=== PATIENT | male | born 1990 | race Caucasian/White ===

== ENCOUNTER 2024-07-21 17:53 | Inpatient (IN) | payer OTHER, SELFPAY ==
[2024-07-21 12:30] VITALS: BP 152/100
[2024-07-21 13:11] LABS: % Basophils 0.3 % (0-2); % Eosinophils 0.1 % (0-6); % Immature Granulocytes 0.4 % (0-0.5); % Monocytes 8.9 % (1.7-9.3); % Neutrophils 85.3 % (42.2-75.2); Absolute Basophils 0.1 10^3/uL (0-0.2); Absolute Immature Granulocytes 0.1 10^3/uL (0-0.05); Absolute Lymphocytes 0.8 10^3/uL (1.2-3.4); Absolute Monocytes 1.4 10^3/uL (0.1-0.6); Absolute Neutrophils 13.6 10^3/uL (1.4-6.5); Hematocrit 34.2 % (39.0-52.0); Hemoglobin 11.4 g/dL (13.0-18.0); Mean Corp Hgb Conc. 33.3 g/dL (33.0-37.0); Mean Corpuscular Hgb 30.9 pg (27.0-31.0); Mean Corpuscular Volume 92.7 fL (80.0-94.0); Mean Platelet Volume 9.3 fL (7.4-10.4); Nucleated Red Blood Cells % 0 % (-); Platelet Count 266 10^3/uL (130-400); Red Blood Cell Count 3.69 10^6/uL (4.70-6.10); Red Cell Dist. Width 12.1 % (11.5-14.5); White Blood Cell Count 15.9 10^3/uL (4.8-10.8)
[2024-07-21 13:21] LABS: ALT (SGPT) 52 U/L (0-50); AST (SGOT) 52 U/L (17-59); Alkaline Phosphatase 74 U/L (38-126); Blood Urea Nitrogen 31 mg/dl (9-20); Calcium 9.2 mg/dl (8.4-10.2); Carbon Dioxide 27 mmol/L (22-30); Chloride 102 mmol/L (98-107); Glucose 121 mg/dl (70-99); Potassium 4.4 mmol/L (3.5-5.1); Sodium 137 mmol/L (135-145); Total Bilirubin 0.5 mg/dl (0.2-1.3); Total Protein 6.6 g/dl (6.3-8.2); eGFR > 60.00
[2024-07-21 15:03] VITALS: BP 129/78
--- NOTE | 2024-07-21 15:46 | ED.GENMED ---
History of Present Illness
General
Chief Complaint: Skin Problem
Time Seen by Provider: 07/21/24 15:12
History of Present Illness
History of Present Illness:
33-year-old male with history of hypertension presents the emergency department for evaluation of left lower extremity redness swelling and pain for the past 4 to 5 days. Notes that he initially had an abrasion on his left ankle from his work boots
presumably, has had progressive worsening swelling over that time. Reports headache and general fatigue today as well. No objective fevers. No known history of MRSA. Denies history of IV drug abuse.
Past History
Past History
ED Past Medical History: None
ED Past Surgical History: None
Social History
Tobacco: Non-smoker
Alcohol: None
Review of Systems
Review of Systems
Allergies reviewed?: Yes
All Other Systems: ROS reviewed and negative except as documented in HPI and ROS
Phy Exam
Physical Exam
Physical Exam:
GEN: Well appearing, NAD, WDWN
HEENT: Oral mucosa moist, no scleral icterus
Cardiac: Regular rate
Lung: No respiratory distress, no tachypnea
MSK: Marked edema and erythema circumferentially in the entire left lower extremity extending to the mid thigh, there is a small abrasion to the left medial foot
Skin: Good color, no pallor or jaundice, no rashes
Neuro: AO x3, moves all extremities freely
Psych: Calm, cooperative
Sepsis
Sepsis Screening
Sepsis Assessment: Sepsis
Sepsis Screen
Sepsis Screen: Sepsis
Date: 07/21/24
Time: 18:55
Course
Orders/Labs/Results
Orders:
Orders
07/21/24 12:48
CMP [Comprehensive Metabolic Panel] Urgent
Complete Blood Count/With Diff Urgent
Blood Culture Urgent
BLAYNE Source: Blood/Venous
Specimen Description:
07/21/24 15:32
CeFAZolin 2 GRAM [Ancef] 2 grams in 10 ml IV NOW
07/21/24 16:39
Lactic Acid Q4H
Comment: CANCEL 2nd LACTIC ACID IF 1st LACTIC ACID IS LESS THAN 2
Blood Culture Urgent
BLAYNE Source: Blood/Venous
Specimen Description:
07/21/24 17:29
Venous Doppler Lwr Ext Left [US Periph Venous LOWER Ext LT] Urgent
Comment:
Reason For Exam: lef tleg edema
07/21/24 17:30
Admit/Transfer Patient As Directed
Co-Sign Provider:
Level of Care: Inpatient admission
Assign to:: Medical/Surgical
Physician / Group: lacie olmstead
Diagnosis: LLE cellulitis, left heel wound,left knee effusion
Reason for Hospitalization: LLE cellulitis, left heel wound,left knee effusion
Expected length of stay greater than two midnights?: Yes
ELOS- Estimated Length of Stay in days: 4
I certify the patient meets the requirements for IP care: Yes
07/21/24 17:35
Code Status As Directed
Resuscitation Status: Full Code
07/21/24 17:36
PRN Pain Medication Management As Directed
May give lesser potent ordered pain med per pt: Yes
preference::
Protocol:: Medication orders for pain may be administered in a
manner that supports deferring to patient preference
when the pt is:
- Requesting an ordered lesser potent pain medication.
Least to most potent pain medications are defined
as: acetaminophen < NSAID < tramadol < opioids
(morphine, oxycodone, hydromorphone).
- Requesting a lesser dose of the same medication IF
ORDERED.
- Requesting a less intrusive route of administration
if both routes are prescribed by the provider (PO <
IV).
07/21/24 18:16
MRSA Screen Routine
BLAYNE Source: Nose
Specimen Description:
Abnormal Lab Results
07/21/24
12:48
WBC 15.9 H 10^3/uL
(4.8-10.8)
RBC 3.69 L 10^6/uL
(4.70-6.10)
Hgb 11.4 L g/dL
(13.0-18.0)
Hct 34.2 L %
(39.0-52.0)
Abs Immat Gran (auto) 0.1 H 10^3/uL
(0-0.05)
Absolute Neuts (auto) 13.6 H 10^3/uL
(1.4-6.5)
Absolute Lymphs (auto) 0.8 L 10^3/uL
(1.2-3.4)
Absolute Monos (auto) 1.4 H 10^3/uL
(0.1-0.6)
Neutrophils % 85.3 H %
(42.2-75.2)
Lymphocytes % 5.0 L %
(20.5-51.1)
BUN 31 H mg/dl
(9-20)
Glucose 121 H mg/dl
(70-99)
ALT 52 H U/L
(0-50)
07/21/24 12:48
07/21/24 12:48
Vital Signs
Initial and Last Documented VS:
Initial Vital Signs
Temp Pulse Resp BP Pulse Ox
98.6 F 114 20 152/100 98
07/21/24 12:30 07/21/24 12:30 07/21/24 12:30 07/21/24 12:30 07/21/24 12:30
Last Documented Vital Signs
Temp Pulse Resp BP Pulse Ox
98.4 F 91 18 162/90 100
07/21/24 16:20 07/21/24 16:20 07/21/24 16:20 07/21/24 16:20 07/21/24 16:20
MDM/Problems Addressed
MDM/Problems Addressed:
Massive degree of edema and erythema concerning for progressive cellulitis, will admit to the hospitalist service for IV antibiotics
*Critical Care Note
Total Time (30-74mins, 75-104mins- exclusive of procedures): Not Applicable
ED Attending Note
-
Portions of this chart may have been created with voice recognition software.� Occasional wrong word or��sound alike� substitutions may have occurred due to the inherent limitations of voice recognition software.
Discharge Plan
Departure
Patient Disposition: Admit
Date of Disposition: 07/21/24
Time of Disposition: 15:46
Admit to: Med/Surg
Presentation/result/management discussed w/ accepting MD/DO: Hospitalist
Discharge Problem:
Cellulitis of left lower extremity
Interventions
Interventions:
*Risk Screen - Suicide Last Done: 07/21/24 12:30
*Neglect/Abuse Screening Last Done: 07/21/24 12:30
ED- Fall Risk Assessment Last Done: 07/21/24 17:06
*ED COVID-19 Vaccine History Last Done: 07/21/24 12:30
ED-Skin Assessment Last Done: 07/21/24 17:06
[2024-07-21 16:20] VITALS: BP 162/90
[2024-07-21 16:26] VITALS: BMI 28.0
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
[2024-07-21] MEDS: ANCEF 10 IV (16:40)
[2024-07-21 17:06] LABS: Lactic Acid 0.7 mmol/L (0.7-2.0)
--- NOTE | 2024-07-21 17:26 | W.PN.UPDATE ---
Update Note
Progress Note Update
This is an addendum to the H&P written by Zayra Sousa on 07/21/2024. Patient seen and examined independently with MANAGER CODE.
33-year-old male past medical history of PTSD, anxiety/depression, prior methamphetamine use, insomnia, chronic generalized pain, former alcohol user presenting with left leg redness, pain and swelling originating from the site of scab at his left
ankle that he picked.
Check venous ultrasound. Cefazolin. Check MRSA swab.
Patient taking excessive amounts of ibuprofen and counseled on reduction.
[2024-07-21 19:41] VITALS: BP 159/92; BMI 27.8
[2024-07-21] MEDS: REMERON 45 MG PO (20:36)
[2024-07-21] MEDS: TYLENOL PO (20:36)
[2024-07-21] MEDS: WELLBUTRIN REGULAR RELEASE 150 MG PO (20:37)
[2024-07-21] MEDS: MOTRIN PO (20:37)
[2024-07-21 23:35] VITALS: BP 140/79
[2024-07-22] MEDS: TYLENOL 650 MG PO ×5 (00:19→23:33)
[2024-07-22] MEDS: ANCEF 10 IV ×4 (00:20→23:33)
[2024-07-22] MEDS: MOTRIN PO ×2 (00:28→03:17)
[2024-07-22] MEDS: TYLENOL PO (00:28)
[2024-07-22 07:24] LABS: % Basophils 0.4 % (0-2); % Eosinophils 1.5 % (0-6); % Immature Granulocytes 0.3 % (0-0.5); % Lymphocytes 10.8 % (20.5-51.1); % Monocytes 8.2 % (1.7-9.3); % Neutrophils 78.8 % (42.2-75.2); Absolute Basophils 0.1 10^3/uL (0-0.2); Absolute Eosinophils 0.2 10^3/uL (0-0.7); Absolute Lymphocytes 1.2 10^3/uL (1.2-3.4); Absolute Monocytes 0.9 10^3/uL (0.1-0.6); Absolute Neutrophils 9.1 10^3/uL (1.4-6.5); Hematocrit 35.5 % (39.0-52.0); Hemoglobin 12.3 g/dL (13.0-18.0); Mean Corp Hgb Conc. 34.6 g/dL (33.0-37.0); Mean Corpuscular Hgb 31.8 pg (27.0-31.0); Mean Corpuscular Volume 91.7 fL (80.0-94.0); Mean Platelet Volume 9.4 fL (7.4-10.4); Nucleated Red Blood Cells % 0 % (-); Platelet Count 307 10^3/uL (130-400); Red Blood Cell Count 3.87 10^6/uL (4.70-6.10); Red Cell Dist. Width 12.2 % (11.5-14.5); White Blood Cell Count 11.5 10^3/uL (4.8-10.8)
[2024-07-22 07:45] VITALS: BP 121/81
[2024-07-22] MEDS: WELLBUTRIN REGULAR RELEASE 150 MG PO ×2 (08:58→21:55)
[2024-07-22] MEDS: ZOLOFT 250 MG PO (08:58)
[2024-07-22] MEDS: PROTONIX 40 MG PO (09:01)
[2024-07-22 09:52] LABS: ALT (SGPT) 46 U/L (0-50); AST (SGOT) 41 U/L (17-59); Albumin 4.4 g/dl (3.5-5.0); Alkaline Phosphatase 72 U/L (38-126); Blood Urea Nitrogen 26 mg/dl (9-20); Calcium 9.7 mg/dl (8.4-10.2); Carbon Dioxide 22 mmol/L (22-30); Chloride 104 mmol/L (98-107); Estimated Creatinine Clearance > 125 ml/min; Glucose 145 mg/dl (70-99); Potassium 4.2 mmol/L (3.5-5.1); Sodium 139 mmol/L (135-145); Total Bilirubin 0.8 mg/dl (0.2-1.3); Total Protein 6.9 g/dl (6.3-8.2); eGFR > 60.00
[2024-07-22] MEDS: MOTRIN 600 MG PO ×3 (09:58→22:07)
--- NOTE | 2024-07-22 11:48 | W.PN.HOSP.TC ---
Addendum entered and electronically signed by Jewel Mcclain MD 07/23/24 11:13:
sepsis poa
Original Note:
Today's Communication/Plan
-
IV cefazolin
cont home meds
Assessment / Plan
Assessment / Plan
General: Pain; No Fever or Chills
HEENT: NormoCephalic, Anicteric, Moist mucous membranes, , [place] Conjunctivae and No Ptosis
Respiratory: Clear; No Wheezes, Rales or Rhonchi
Cardiac: S1/S2 and Regular Rhythm
Breast: Deferred by me
GI: Soft, Non Tender, Non Distended, Normal Bowel Sounds and No Hepatosplenomegaly
Rectal: Deferred by Provider
Genito-urinary: Deferred by me
Musculoskeletal: LLE erythema from foot to medial leg. Erythema at thigh region resolved based on marker from yesterday
Neuro: AO x 3, No Motor Deficits, Nonfocal/grossly intact, Cranial Nerves Intact and No Sensory Deficits; No Slurred Speech, Facial Droop, Tremors or Sedated
Psych: Calm
#Left lower extremity cellulitis/chronic left heel open callus likely source
#Left knee effusion-denies fall or injury
-Ultrasound left lower extremity-neg
-Check MRSA nasal screen
-Tylenol scheduled alternate with Motrin
-Continue Motrin 600 mg 4 times daily alternating with Tylenol due to history of addiction
-IV cefazolin
#PTSD
#Anxiety/depression
-Continue Zoloft to 50 mg daily
-Continue Wellbutrin 150 mg twice daily
#Insomnia
Continue Remeron 45 mg at bedtime
#Former methamphetamine use quit 8 years ago
-Snorted for 3 months then wrapped in toilet paper and swallowed
#Chronic generalized pain after stopping methamphetamine
-Patient taking 8000 mg of ibuprofen daily for the past 8 years
-Advised patient this is overdose dosing maximum amount is 4000 mg/day he states he will reduce
-Recommended patient find new PCP for medication such as Cymbalta to help with pain given past history of addiction
#Former alcoholic stopped age 21
Used to drink one half bottle of whiskey +15 beer daily
#Chronic bilateral ear/sinus pressure
-Recommended follow-up with ENT instead of using Debrox every single day twice daily
DVT prophylaxis
Subcu Lovenox
Full code
Anticipated Discharge: Within 24 hours
Subjective/Interval History
-
Date of Service: July 22, 2024
states improvement in erythema
Denies knee pain
Objective Data
-
Labs:
Laboratory Results
07/22/24
07:08
WBC 11.5 H
Hgb 12.3 L
Hct 35.5 L
Plt Count 307
Sodium 139
Potassium 4.2
Chloride 104
Carbon Dioxide 22
BUN 26 H
Creatinine 0.7
Glucose 145 H
Calcium 9.7
Total Bilirubin 0.8
AST 41
ALT 46
Alkaline Phosphatase 72
Vital Signs:
Vital Signs
Temp Pulse Resp BP Pulse Ox
98.8 F 89 18 121/81 99
07/22/24 07:45 07/22/24 07:45 07/22/24 07:45 07/22/24 07:45 07/22/24 08:45
I&O
07/21/24 07/22/24 07/23/24
06:59 06:59 06:59
Intake Total 900 / 900
Balance 900 / 900
Data Reviewed
-
Total Time Spent with Patient (in minutes): 55
[2024-07-22 15:48] VITALS: BP 146/84
[2024-07-22] MEDS: REMERON 45 MG PO (21:55)
[2024-07-22] MEDS: FLUSH (NSS) 2 FLUSH IV (23:34)
[2024-07-22 23:35] VITALS: BP 132/74
[2024-07-23] MEDS: MOTRIN PO (02:54)
[2024-07-23] MEDS: TYLENOL 650 MG PO ×2 (05:40→11:00)
[2024-07-23] MEDS: WELLBUTRIN REGULAR RELEASE 150 MG PO (06:14)
[2024-07-23] MEDS: ZOLOFT 250 MG PO (06:14)
[2024-07-23 06:31] LABS: % Basophils 0.6 % (0-2); % Eosinophils 2.4 % (0-6); % Immature Granulocytes 0.3 % (0-0.5); % Lymphocytes 18.2 % (20.5-51.1); % Neutrophils 68.5 % (42.2-75.2); Absolute Basophils 0.1 10^3/uL (0-0.2); Absolute Eosinophils 0.2 10^3/uL (0-0.7); Absolute Lymphocytes 1.6 10^3/uL (1.2-3.4); Absolute Monocytes 0.9 10^3/uL (0.1-0.6); Absolute Neutrophils 6.1 10^3/uL (1.4-6.5); Hematocrit 35.1 % (39.0-52.0); Mean Corp Hgb Conc. 34.2 g/dL (33.0-37.0); Mean Corpuscular Hgb 31.3 pg (27.0-31.0); Mean Corpuscular Volume 91.6 fL (80.0-94.0); Mean Platelet Volume 9.2 fL (7.4-10.4); Nucleated Red Blood Cells % 0 % (-); Platelet Count 326 10^3/uL (130-400); Red Blood Cell Count 3.83 10^6/uL (4.70-6.10); Red Cell Dist. Width 11.9 % (11.5-14.5); White Blood Cell Count 8.9 10^3/uL (4.8-10.8)
[2024-07-23 07:00] LABS: Blood Urea Nitrogen 25 mg/dl (9-20); Calcium 9.4 mg/dl (8.4-10.2); Carbon Dioxide 24 mmol/L (22-30); Chloride 106 mmol/L (98-107); Estimated Creatinine Clearance > 125 ml/min; Glucose 97 mg/dl (70-99); Potassium 4.5 mmol/L (3.5-5.1); Sodium 137 mmol/L (135-145); eGFR > 60.00
[2024-07-23 07:46] VITALS: BP 136/94
[2024-07-23] MEDS: PROTONIX 40 MG PO (08:35)
[2024-07-23] MEDS: ANCEF 10 IV (08:35)
[2024-07-23] MEDS: MOTRIN 600 MG PO (09:43)
--- NOTE | 2024-07-23 09:57 | PN.CDI ---
CDI
- -
CDI:
Physician Documentation Request
Admit Date: 07/21/24 17:53
Dear Doctor Johny,
Patient admitted for cellulitis.
07/22 Hospitalist PN: 'Left lower extremity cellulitis/chronic left heel open callus likely source'
Laboratory Tests
07/21/24
12:48
WBC 15.9 H
07/21/24
12:30 07/21/24
16:20 07/21/24
19:41
Pulse 114 91 95
Please clarify which of the following most accurately describes the status of the patient's infection:
Sepsis, POA
- Systemic manifestations of infection, with 2 or more SIRS criteria which include:
- Fever >100.4 degrees F or hypothermia < 96.8 degrees F
- Leukocytosis - WBC > 12,000 or leukopenia - WBC < 4,000 or > 10% bands
- Tachycardia > 90 beats per minute
- Tachypnea - RR > 20 breaths per minute or PaCO2 , 32mmHg
Source: Merck Manual 2012
Localized Infection Only, Without Systemic Illness
- indicate the site/source, such as UTI, pneumonia etc.
Other
Use of terms such as suspected, likely, concern for, or probable (associated with a specific diagnosis that is being evaluated, monitored, or treated as if it exists) are acceptable and can be coded in the inpatient setting, when documented at the
time of discharge.
Thank you,
Daniella Campos RN, BSN
CDI Specialist
Available via [employer] text
Please use your independent medical judgment in providing your response.
--- NOTE | 2024-07-23 11:07 | W.PN.HOSP.TC ---
Today's Communication/Plan
-
po abx
counseled on NSAIDs reduction
Assessment / Plan
Assessment / Plan
General: Pain; No Fever or Chills
HEENT: NormoCephalic, Anicteric, Moist mucous membranes, , [place] Conjunctivae and No Ptosis
Respiratory: Clear; No Wheezes, Rales or Rhonchi
Cardiac: S1/S2 and Regular Rhythm
Breast: Deferred by me
GI: Soft, Non Tender, Non Distended, Normal Bowel Sounds and No Hepatosplenomegaly
Rectal: Deferred by Provider
Genito-urinary: Deferred by me
Musculoskeletal: LLE erythema from foot to medial leg. Erythema at thigh region resolved based on marker significant improvement compared to yesterday. No left knee edema or swelling.
Neuro: AO x 3, No Motor Deficits, Nonfocal/grossly intact, Cranial Nerves Intact and No Sensory Deficits; No Slurred Speech, Facial Droop, Tremors or Sedated
Psych: Calm
#Left lower extremity cellulitis/chronic left heel open callus likely source
#Left knee effusion-denies fall or injury
-Ultrasound left lower extremity-neg
-Check MRSA nasal screen negative
-IV cefazolin transition to p.o. antibiotics on discharge. Plan for 7-day course.
#PTSD
#Anxiety/depression
-Continue Zoloft to 50 mg daily
-Continue Wellbutrin 150 mg twice daily
#Insomnia
Continue Remeron 45 mg at bedtime
#Chronic generalized pain after stopping methamphetamine
-Patient taking 8000 mg of ibuprofen daily for the past 8 years
-Advised patient this is overdose dosing maximum amount is 4000 mg/day he states he will reduce
-Recommended patient find new PCP for medication such as Cymbalta to help with pain given past history of addiction
#Former alcoholic stopped age 21
Used to drink one half bottle of whiskey +15 beer daily
#Chronic bilateral ear/sinus pressure
-Recommended follow-up with ENT instead of using Debrox every single day twice daily
DVT prophylaxis
Subcu Lovenox
Full code
More than 30 minutes spent in discharge including
Final examination of the patient
Summarizing hospital stay
Instructions for continuing care to all relevant caregivers
Preparation of discharge records, prescriptions, and referral forms
Total time spent (in minutes): 52
Anticipated Discharge: Today
Subjective/Interval History
-
Date of Service: July 23, 2024
States of significant improvement erythema
Denies any left knee pain
States able to ambulate without any difficulty
Objective Data
-
Labs:
Laboratory Results
07/23/24
06:09
WBC 8.9
Hgb 12.0 L
Hct 35.1 L
Plt Count 326
Sodium 137
Potassium 4.5
Chloride 106
Carbon Dioxide 24
BUN 25 H
Creatinine 0.7
Glucose 97
Calcium 9.4
Vital Signs:
Vital Signs
Temp Pulse Resp BP Pulse Ox
98.1 F 91 16 136/94 97
07/23/24 07:46 07/23/24 07:46 07/23/24 07:46 07/23/24 07:46 07/23/24 07:46
I&O
07/22/24 07/23/24 07/24/24
06:59 06:59 06:59
Intake Total 1859
Balance 1859
--- NOTE | 2024-07-23 11:13 | W.DCSUMMARY ---
Discharge Summary
Discharge Data
Date of Admission: 07/21/24
Date of Discharge: 07/23/24
-
Pending Results: No
Hospital Course
33-year-old male past medical history of PTSD, insomnia, generalized pain, chronic bilateral ear/sinus pressure was presented with left lower extremity erythema. Patient stated of scab the left ankle subsequently afterwards he noticed significant
erythema which was uptrending. Patient stated of severe swelling and left leg pain. Patient was admitted to hospital. My assessment was negative. Blood cultures were drawn and found to be negative. Patient was started on IV cefazolin. Patient
with significant improvement of erythema throughout hospitalization. Patient was taking increasing amount of ibuprofen was recommended to decrease dose and/or stop it. Patient with significant improvement erythema, downtrending of WBC and IV
antibiotics with transition to p.o. antibiotics. Patient be discharged home with recommendation to follow-up outpatient with PCP.
Discharge Plan
-
Patient Disposition: Home (Routine Discharge)
Discharge Diagnosis/Procedures: Left lower extremity cellulitis/chronic left heel open callus likely source
Condition: Fair
Diet: Regular
Activity: As tolerated
Driving Restrictions: As prior to admission
Referrals:
Isabelle Lebron MD [Family Provider] - in less than 1 week
Prescriptions:
New
acetaminophen 325 mg Tablet
650 mg PO Q6 PRN (Reason: Pain) 5 Days Qty: 20 0RF
cephalexin 500 mg capsule
1,000 mg PO Q12H 6 Days Qty: 24 0RF
Continued
sertraline 100 mg Tablet
250 mg PO DAILY
peppermint oil Capsule,Delayed Release(Dr/Ec)
2 cap PO 8XD
mirtazapine 45 mg Tablet
45 mg PO HS
bupropion HCl 75 mg Tablet
150 mg PO BID
Discontinued
ibuprofen 200 mg Tablet
1,000 mg PO 8XD
Discharge Orders:
Discharge Patient (As Directed); Ordered 07/23/24
Ordered By: Jewel Mcclain
Discharge Date and Time
Discharge Date/Time: 07/23/24 11:44
Print Language: NIGERIEN
--- NOTE | 2024-07-23 11:40 | PTCARENOTE ---
Erythemagreatly reduced within marked borders. Discharge order acknowledged. Instructions reviewed with patient. Prescription sent to [facility]. IV site removed. Pt escorted to car via wheelchair by staff.
--- NOTE | 2024-07-23 12:37 | CM ---
D/c today. Pt seen bedside, initial assessment. Admitted for left leg erythema expanding over 4 days.
Pt reports that he lives w/ his fiance in a 2nd flr apartment- 3 steps to enter. Pt is independent w/ ambulating and ADLs.
Denies SNF/VN/PT hx. Denies any current OP or home services at this time.
PCP: Dr. Hester
[facility]
No CM needs at this time
Plan: Home; no needs
== END 2024-07-23 11:44 | disposition home or self-care (01) | DRG 872 ==
LOC: 1 ACUTE 17:53
PROVIDERS: Clinical Nurse Specialist Family Health; Physician Assistant; Student in an Organized Health Care Education/Training Program; ADMITTING PHYSICIAN Hospitalist; ATTENDING PHYSICIAN Hospitalist; EMERGENCY PHYSICIAN Emergency Medicine; FAMILY PHYSICIAN Internal Medicine
DX: A41.9 Sepsis, unspecified organism (principal); L03.116 Cellulitis of left lower limb; M25.462 Effusion, left knee; F43.10 Post-traumatic stress disorder, unspecified; F32.A Depression, unspecified; F41.9 Anxiety disorder, unspecified; G47.00 Insomnia, unspecified; G89.29 Other chronic pain; F10.21 Alcohol dependence, in remission; Z79.899 Other long term (current) drug therapy; Z87.891 Personal history of nicotine dependence
CPT/HCPCS: 80048; 80053; 83605; 85025; 87040; 87070; 93971; 96374; 99285

== ENCOUNTER 2024-08-02 08:40 | Emergency (ER) | payer OTHER, SELFPAY ==
[2024-08-02 08:42] VITALS: BP 128/78
--- NOTE | 2024-08-02 09:28 | ED.GENMED ---
History of Present Illness
General
Chief Complaint: Skin Problem
Time Seen by Provider: 08/02/24 09:09
History of Present Illness
History of Present Illness:
33-year-old male presents the emergency department for evaluation of persistent Since hospital recently for left extremity cellulitis he is currently on treatment and. He feels that the erythema and pain is improved but swelling is persistent.
Also concern for intermittent blood in the stool noticed over the past several minutes. Denies any diarrhea. Feels as though he is straining to have bowel movements. No lower abdominal pain. 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
concerned about exposure to burn pits and subsequent cancer risk
Past History
Past History
ED Past Medical History: None
ED Past Surgical History: None
Social History
Tobacco: Non-smoker
Alcohol: None
Review of Systems
Review of Systems
Allergies reviewed?: Yes
All Other Systems: ROS reviewed and negative except as documented in HPI and ROS
Phy Exam
Physical Exam
Physical Exam:
GEN: Well appearing, NAD, WDWN
HEENT: Oral mucosa moist, no scleral icterus
Cardiac: Regular rate
Lung: No respiratory distress, no tachypnea
Rectal: No gross bleeding, small non-thrombosed external hemorrhoids
MSK:Severe left lower extremity edema from the ankle to the knee, no significant erythema or tenderness, no palpable varicosities
Skin: Good color, no pallor or jaundice, no rashes
Neuro: AO x3, moves all extremities freely
Psych: Calm, cooperative
Course
Vital Signs
Initial and Last Documented VS:
Initial Vital Signs
Temp Pulse Resp BP Pulse Ox
98.4 F 92 16 128/78 100
08/02/24 08:42 08/02/24 08:42 08/02/24 08:42 08/02/24 08:42 08/02/24 08:42
Last Documented Vital Signs
Temp Pulse Resp BP Pulse Ox
98.4 F 92 16 128/78 100
08/02/24 08:42 08/02/24 08:42 08/02/24 08:42 08/02/24 08:42 08/02/24 08:42
MDM/Problems Addressed
MDM/Problems Addressed:
Leg overall appears improved compared to recent admission. Likely persistent venous stasis edema, educated on supportive care. In regards to the rectal bleeding this is most likely due to external hemorrhoids, discussed supportive care however
encouraged GI follow-up
*Critical Care Note
Total Time (30-74mins, 75-104mins- exclusive of procedures): Not Applicable
ED Attending Note
-
Portions of this chart may have been created with voice recognition software.� Occasional wrong word or��sound alike� substitutions may have occurred due to the inherent limitations of voice recognition software.
Discharge Plan
Departure
Patient Disposition: Home (Routine Discharge)
Date of Disposition: 08/02/24
Time of Disposition: 09:28
Patient with high blood pressure during this ER visit?: No
Discharge Problem:
Hemorrhoids, Leg edema, left
Instructions: Swelling, Hemorrhoids ED
Prescriptions:
No Action
sertraline 100 mg Tablet
250 mg PO DAILY
peppermint oil Capsule,Delayed Release(Dr/Ec)
2 cap PO 8XD
mirtazapine 45 mg Tablet
45 mg PO HS
bupropion HCl 75 mg Tablet
150 mg PO BID
acetaminophen 325 mg Tablet
650 mg PO Q6 PRN (Reason: Pain) 5 Days Qty: 20 0RF
cephalexin 500 mg capsule
1,000 mg PO Q12H 6 Days Qty: 24 0RF
Referrals:
Michelle Viera MD [Active] -
Activity Restrictions/Additional Instructions:
Fiber supplements
Stool softeners or miralax as needed to increase bowel frequency
GI follow up if bleeding does not resolve in 10-14 days
Leg swelling: keep leg elevated often. Try compression wraps/josiah bandages to squeeze more fluid out of the leg
Interventions
Interventions:
*Risk Screen - Suicide Last Done: 08/02/24 09:30
*General Assessment Last Done: 08/02/24 09:30
*Neglect/Abuse Screening Last Done: 08/02/24 09:30
*ED- Fall Risk Assessment Last Done: 08/02/24 09:30
*ED COVID-19 Vaccine History Last Done: 08/02/24 09:30
*Nursing Disposition Last Done: 08/02/24 09:35
ED-Skin Assessment Last Done: 08/02/24 09:28
Discharge Date and Time
Discharge Date/Time: 08/02/24 09:35
Print Language: TURKISH
== END 2024-08-02 09:35 | disposition home or self-care (01) ==
LOC: EMR 08:40
PROVIDERS: EMERGENCY PHYSICIAN Emergency Medicine
DX: R60.0 Localized edema (principal); K64.4 Residual hemorrhoidal skin tags; K92.1 Melena
CPT/HCPCS: 99282

== ENCOUNTER 2025-02-25 18:21 | Inpatient (IN) | payer OTHER, SELFPAY ==
[2025-02-25] VITALS (9 sets, daily range): BP systolic 126–167; BP diastolic 83–124; BMI 31.3
--- NOTE | 2025-02-25 16:55 | ED.GENMED ---
History of Present Illness
General
Chief Complaint: Breathing Problem
Time Seen by Provider: 02/25/25 16:46
History of Present Illness
History of Present Illness:
FOCUSED PAST MEDICAL HISTORY
- High blood pressure
REVIEW OF OLD RECORDS
- The patient was admitted in June with cellulitis and was treated with IV Ancef.
Note:
CHIEF COMPLAINT(S)
Shortness of breath and hemoptysis.
HISTORY OF PRESENT ILLNESS
The patient is a 34-year-old male presenting with symptoms of shortness of breath that have been progressively worsening over the past few weeks. He reports the development of hemoptysis, which began yesterday. The patient describes the source of
the blood as coming from the lungs through coughing, rather than gastrointestinal bleeding. He denies any prior episodes of hemoptysis and reports no use of blood-thinning medications. He is experiencing significant respiratory distress at present.
ADDITIONAL HISTORY OBTAINED FROM SOURCE OTHER THAN PATIENT
According to the medical team, the patient is in critical condition, presenting with hypoxia when breathing room air, with oxygen saturation levels ranging from 50% to 60%. Lung auscultation reveals somewhat diminished breath sounds. His skin is
noted to be mottled.
PHYSICAL EXAM
General: Alert, ill-appearing, critical in appearance
Skin: Mottled appearance.
Respiratory: The patient is hypoxic on room air, breath sounds are somewhat decreased
Neurological: Alert and oriented to person, place, time, and situation, No focal neurological deficit observed.
- HEENT: Moist oral mucosa
- Cardiovascular: No murmurs, markedly tachycardic heart rate, regular rhythm, No chest wall tenderness
- Abdomen: Soft with no peritoneal signs, no tenderness
- Neurologic: Good strength all extremities, no coordination deficits
- Psychiatric: Appropriate mental status, normal insight and judgement, but appears somewhat anxious
- Extremities: Nontender, no edema, moves all extremities equally
PROBLEM LIST
Acute:
- Hypoxia
- Hemoptysis
- Respiratory distress
PLAN
A computed tomography (CT) scan of the chest is being arranged urgently to obtain imaging of the lungs.
DIFFERENTIAL DIAGNOSIS
The Differential Diagnosis includes, in no particular order and is not limited to:
- Pulmonary embolism
- Pneumonia
- Tuberculosis
- Lung cancer
- Bronchiectasis
- Tuberculosis
- Pulmonary arteriovenous malformation
- Goodpasture syndrome
- Granulomatosis with polyangiitis
- Pulmonary edema
RADIOLOGY
- CTA chest personally reviewed, no sign of PE but he has severe bilateral airspace disease
LABS
- White count 33.7, hemoglobin 12.4, INR 1.2, sodium 131, glucose 219, lactic 1.5, BNP 1900, UDS positive for methamphetamines and marijuana, UA negative for infection but 2+ blood
UPDATE
-SUMMARY OF ENCOUNTER
The patient, a 34-year-old male, presented to the emergency department with significant respiratory distress, shortness of breath, and hemoptysis. He showed signs of hypoxia with oxygen saturation levels in the 50% range while breathing room air.
COVID-19 test returned negative. Notable findings include marked leukocytosis and hyperglycemia. A chest CT revealed marked airspace disease of uncertain etiology. The patient reported possible exposure to chemicals, vaping, and silica. He did not
require intubation and showed some improvement with high-flow oxygen therapy. Following consultation with a wallpaper embosser helper, Dr. Ramirez, the patient was started on broad-spectrum antibiotics, azithromycin, and IV steroids.
MANAGEMENT OF THE PATIENTS CARE WAS DISCUSSED WITH
Discussion held with Dr. Ramirez, wallpaper embosser helper, who evaluated the patient at the bedside.
PLAN
Continued high-flow oxygen therapy. Administer broad-spectrum antibiotics, azithromycin, and IV steroids as per pulmonary recommendation. Monitor patients response to treatment and adjust management plan as needed.
INDEPENDENT REVIEW OF LABS AND INTERPRETATION OF TESTS
My independent review of Complete Blood Count (CBC) indicates marked leukocytosis.
My independent review of glucose levels noted hyperglycemia.
INDEPENDENT REVIEW OF RADIOLOGY STUDIES
- My independent interpretation of the chest CT shows marked airspace disease of uncertain etiology.
MEDICATION RECONCILIATION
- Administered in the emergency department: Broad-spectrum antibiotics, azithromycin, and intravenous steroids.
MEDICAL DECISION MAKING
- Complexity of Data Reviewed: Chronic conditions affecting care noted. Differential diagnosis includes pulmonary embolism, pneumonia, tuberculosis, lung cancer, bronchiectasis, pulmonary arteriovenous malformation, Goodpasture syndrome,
granulomatosis with polyangiitis, and pulmonary edema.
- Data:
Category 1:
- Independent interpretation of the chest CT.
- Clinical information obtained from an independent historian: consultation with wallpaper embosser helper Dr. Ramirez.
- Risk: Admission/observation was not explicitly stated but patient required significant intervention and monitoring.
DIAGNOSIS
- Acute hypoxia (ICD-10: R09.02)
- Hemoptysis (ICD-10: R04.2)
- Acute respiratory distress (ICD-10: J80)
- Airspace disease of uncertain etiology (ICD-10: J98.19)
Past History
Past History
ED Past Medical History: None
ED Past Surgical History: None
Social History
Tobacco: Non-smoker
Alcohol: None
Phy Exam
Physical Exam
Physical Exam:
See HPI
Course
Orders/Labs/Results
Orders:
Orders
02/25/25 Dinner
NPO
Allow oral meds: Yes
Allow clear liquids: No
02/25/25 16:48
CT Chest PE Study Urgent
Comment:
Reason For Exam: respiratory distress
02/25/25 16:50
C-Reactive Protein Urgent
Comment: ADD ON
Complete Blood Count/With Diff Urgent
Comprehensive Metabolic Panel Urgent
Magnesium Urgent
Comment: ADD ON
NT-proBNP Urgent
Phosphorus Urgent
Comment: ADD ON
02/25/25 17:09
PTT Urgent
Prothrombin Time Urgent
02/25/25 17:19
Cefepime HCl [Maxipime] 1,000 mg IV NOW STA
Vancomycin [Vancocin] 2,000 mg 0.9% Sodium Chloride 500 ml [Nss] 500 ml IV NOW
02/25/25 17:35
COVID-19 Antigen Urgent
Source: Nasal Swab
Blood Culture Q20M
BLAYNE Source: Blood/Venous
Specimen Description:
Comment: Urgent from separate sites. If patient screens positive for possible sepsis
Blood Culture Q20M
BLAYNE Source: Blood/Venous
Specimen Description:
Comment: Urgent from separate sites. If patient screens positive for possible sepsis
Influenza A+B Rapid Molecular Urgent
BLAYNE Source: Nasal Swab
Specimen Description:
02/25/25 17:36
ABG [Arterial Blood Gas] Urgent
%Oxygen/Room Air: high flow
02/25/25 17:38
Add On- LAB Urgent
Tests Added?: cRP, YAYA, ANCA, RA
Dexamethasone Sod Phosphate [Decadron] 20 mg IV NOW STA
02/25/25 17:39
Admit/Transfer Patient As Directed
Co-Sign Provider:
Level of Care: Inpatient admission
Assign to:: ICU
Physician / Group: rodger
Diagnosis: acute hypoxemic respiratory failure
Reason for Hospitalization: acute hypoxemic respiratory failure
Expected length of stay greater than two midnights?: Yes
ELOS- Estimated Length of Stay in days: 2
I certify the patient meets the requirements for IP care: Yes
Code Status As Directed
Resuscitation Status: Full Code
PRN Pain Medication Management As Directed
May give lesser potent ordered pain med per pt: Yes
preference::
Protocol:: Medication orders for pain may be administered in a
manner that supports deferring to patient preference
when the pt is:
- Requesting an ordered lesser potent pain medication.
Least to most potent pain medications are defined
as: acetaminophen < NSAID < tramadol < opioids
(morphine, oxycodone, hydromorphone).
- Requesting a lesser dose of the same medication IF
ORDERED.
- Requesting a less intrusive route of administration
if both routes are prescribed by the provider (PO <
IV).
02/25/25 17:40
Azithromycin [Zithromax] 1,000 mg 0.9% Sodium Chloride 500 ml [Nss] 490 ml IV NOW
02/25/25 17:42
Dexamethasone Sod Phosphate [Decadron] 20 mg IV NOW STA
02/25/25 17:46
Drug Screen, Urine [Urine Drug Abuse Screen] Urgent
Date Specimen was Collected: 02/25/25
Time Specimen was Collected: 17:42
Fentanyl, Urine Urgent
Lactic Acid Q4H
Comment: CANCEL 2nd LACTIC ACID IF 1st LACTIC ACID IS LESS THAN 2
Urinalysis Reflex To Culture Urgent
Date Specimen was Collected: 02/25/25
Time Specimen was Collected: 17:43
Urine Microscopic Reflex Cult Urgent
Legionella Urinary Antigen Urgent
BLAYNE Source: Urine
Specimen Description:
Strep pneumoniae Antigen Urgent
BLAYNE Source: Urine
Specimen Description:
02/25/25 18:00
Azithromycin 500 mg/250 ml [Zithromax Infusion] 500 mg in 250 ml IV Q24H
02/25/25 18:23
Cefepime HCl [Maxipime] 2,000 mg IV Q24H
02/25/25 18:23
Echo 2D MMode Color/Doppler Routine
Reason for Study: hypoxemia
HBV by Quantitative NAAT [S] Routine
HCV Screen [Hepatitis C Antibody] Routine
HIV 4th Generation [HIV Combo] Routine
Activity As Directed
Activity Level: As Tolerated
Vital Signs As Directed
Frequency: Per unit guidelines
DX Deep Vein Thrombosis Video Routine
02/25/25 20:00
Heparin 5,000 units SC Q12
02/25/25 21:45
Lactic Acid Q4H
Comment: CANCEL 2nd LACTIC ACID IF 1st LACTIC ACID IS LESS THAN 2
02/26/25 06:00
Complete Blood Count/With Diff IN AM
Comprehensive Metabolic Panel IN AM
Abnormal Lab Results
02/25/25 02/25/25 02/25/25
16:50 17:09 17:36
WBC 33.7 H 10^3/uL
(4.8-10.8)
RBC 4.12 L 10^6/uL
(4.70-6.10)
Hgb 12.4 L g/dL
(13.0-18.0)
Hct 36.3 L %
(39.0-52.0)
Plt Count 482 H 10^3/uL
(130-400)
Abs Immat Gran (auto) 0.5 H 10^3/uL
(0-0.05)
Absolute Neuts (auto) 30.5 H 10^3/uL
(1.4-6.5)
Absolute Monos (auto) 1.3 H 10^3/uL
(0.1-0.6)
Immature Gran % 1.5 H %
(0-0.5)
Neutrophils % 90.5 H %
(42.2-75.2)
Lymphocytes % 3.7 L %
(20.5-51.1)
PT 16.2 H Sec
(11.4-14.6)
pCO2 32 L mmHg
(35-48)
pO2 80 L mmHg
(83-108)
Sodium 131 L mmol/L
(135-145)
Chloride 96 L mmol/L
(98-107)
BUN 26 H mg/dl
(9-20)
Glucose 219 H mg/dl
(70-99)
AST 63 H U/L
(17-59)
Alkaline Phosphatase 148 H U/L
(38-126)
Ur Occult Blood Reflex
Urine Bacteria (Reflex)
Urine Albumin (Reflex)
U Methamphetamines Scrn
U Marijuana (THC) Screen
POC Glucose
02/25/25 02/25/25
17:46 18:13
WBC
RBC
Hgb
Hct
Plt Count
Abs Immat Gran (auto)
Absolute Neuts (auto)
Absolute Monos (auto)
Immature Gran %
Neutrophils %
Lymphocytes %
PT
pCO2
pO2
Sodium
Chloride
BUN
Glucose
AST
Alkaline Phosphatase
Ur Occult Blood Reflex 2+ A
(Negative)
Urine Bacteria (Reflex) Few A
(Negative)
Urine Albumin (Reflex) 2+ A
(Neg - Trace)
U Methamphetamines Scrn Positive H
(Negative)
U Marijuana (THC) Screen Positive H
(Negative)
POC Glucose 156 H mg/dl
(70-99)
02/25/25 16:50
02/25/25 16:50
Vital Signs
Initial and Last Documented VS:
Initial Vital Signs
Temp BP
36.8 C 156/83
02/25/25 16:43 02/25/25 16:43
Last Documented Vital Signs
Temp Pulse Resp BP Pulse Ox
37.4 C 136 40 132/85 94
02/25/25 17:53 02/25/25 17:53 02/25/25 17:53 02/25/25 17:59 02/25/25 17:53
*Pulse Oximetry
SaO2: 50
Oxygen Mode of Delivery: Room air
Patient hypoxic: yes
Comment: Placed on high flow
*Regulatory Affairs Director Interpretation
Rate: tachycardiac
Heart Rate: 140
*Critical Care Note
Total Time (30-74mins, 75-104mins- exclusive of procedures): 40min
comment:
The patient was seen immediately upon arrival. CTA obtained emergently without waiting for labs. No PE but has severe extensive airspace disease/ARDS. pH 7.45/pCO2 32/PaO2 80 while on high flow oxygen concerning for severe ARDS. Considered
intubation but overall has improved somewhat on high flow and nonrebreather. Case discussed emergently with wallpaper embosser helper at bedside in the emergency department.
ED Attending Note
-
Portions of this chart may have been created with voice recognition software.� Occasional wrong word or��sound alike� substitutions may have occurred due to the inherent limitations of voice recognition software.
Discharge Plan
Departure
Patient Disposition: Admit
Date of Disposition: 02/25/25
Time of Disposition: 17:21
Presentation/result/management discussed w/ accepting MD/DO: Hospitalist
Discharge Problem:
Acute respiratory distress syndrome (ARDS)
Interventions
Interventions:
*Risk Screen - Suicide Last Done: 02/25/25 17:11
*General Assessment Last Done: 02/25/25 17:11
*Neglect/Abuse Screening Last Done: 02/25/25 17:11
*ED- Fall Risk Assessment Last Done: 02/25/25 17:11
*ED COVID-19 Vaccine History Last Done: 02/25/25 17:11
*ED Influenza Vaccine History Last Done: 02/25/25 17:11
*Nursing Disposition Last Done: 02/25/25 18:26
ED- Cardiac Assessment Last Done: 02/25/25 17:11
ED- Pulmonary Assessment Last Done: 02/25/25 17:11
Discharge Date and Time
Discharge Date/Time: 02/25/25 18:27
[2025-02-25 17:20] LABS: ALT (SGPT) 38 U/L (0-50); AST (SGOT) 63 U/L (17-59); Albumin 3.8 g/dl (3.5-5.0); Alkaline Phosphatase 148 U/L (38-126); Blood Urea Nitrogen 26 mg/dl (9-20); Calcium 9.1 mg/dl (8.4-10.2); Carbon Dioxide 22 mmol/L (22-30); Chloride 96 mmol/L (98-107); Estimated Creatinine Clearance > 125 ml/min; Glucose 219 mg/dl (70-99); Potassium 4.3 mmol/L (3.5-5.1); Sodium 131 mmol/L (135-145); Total Protein 7.0 g/dl (6.3-8.2); eGFR > 60.00
[2025-02-25 17:25] LABS: INR 1.24; PT 16.2 Sec (11.4-14.6)
[2025-02-25 17:26] LABS: APTT 27.6 Sec (23.4-35.0)
[2025-02-25 17:28] LABS: Hematocrit 36.3 % (39.0-52.0); Hemoglobin 12.4 g/dL (13.0-18.0); Mean Corp Hgb Conc. 34.2 g/dL (33.0-37.0); Mean Corpuscular Volume 88.1 fL (80.0-94.0); Nucleated Red Blood Cells % 0 % (-); Platelet Count 482 10^3/uL (130-400); Red Cell Dist. Width 12.1 % (11.5-14.5)
[2025-02-25] MEDS: MAXIPIME 1000 MG IV ×2 (17:37→23:42)
[2025-02-25] MEDS: VANCOCIN 540 MG IV (17:37)
[2025-02-25 17:43] LABS: B.E. -1.1 mmol/L; HCO3 22.2 mmol/L (21-28); O2 Saturation % 97.2 % (94-98); PCO2 32 mmHg (35-48); PO2 80 mmHg (83-108)
--- NOTE | 2025-02-25 17:48 | CON.INTV ---
Consultation
Consultation Request
Date/Time Consultation Requested: 02/25/2025
Date/Time Consultation Performed: 02/25/2025
Medical History
-
Chief Complaint: Shortness of breath, hemoptysis
History of Present Illness:
Patient is a very pleasant 34-year-old gentleman who presents to the emergency room with 2 weeks of progressively worsening shortness of breath. Patient reports that his symptoms started about 2 weeks ago with dry cough without expectoration. And
it has been progressively getting worse. Over the last 48 hours patient reports few episodes of bringing up a trace amount of blood mixed in the phlegm. No nausea, vomiting or hematemesis reported. He is not on any anticoagulants or any
antiplatelets. On initial arrival in the emergency room patient's oxygen saturation was in 50s to 60% and his skin was mottled and he appeared cyanotic. Patient was initially placed on nonrebreather. Subsequently he was switched to high flow
nasal cannula along with nonrebreather with significantly improved oxygen saturation in mid to low 90s. Salon Manager consultation was requested and patient was emergently evaluated in the emergency room itself.
Patient reports that he vapes every night for the last couple of years and does not report any change in the chemicals used or the brand used over the last few days. He does report significant exposure to silica at work and reports wearing N95
during work. Patient denies any new medication recently. No reported sick contact history. No symptoms of URI. No recent symptoms of gastrointestinal illness either. No reported exposure to birds. Patient does have a cat at home.
Patient reports known history of Psoriatic arthritis for which he is not on any medications. He does carry a diagnosis of depression, anxiety. No reported history of asthma, cystic fibrosis, emphysema or COPD. No current use of alcohol. Does
report smoking marijuana occasionally.
Past Medical History
Past Medical History: Reports Other (psoriasis, vaping, PTSD, insomnia, former alcohol use disorder, chronic bilateral ear/sinus pressure, chronic generalized pain, marijuana use)
Past Surgical History: Reports None
Social History
Tobacco: Vaping
Alcohol: Former
Drug: Marijuana
Family History
Family History: Not pertinent
Allergies / Home Medications
Allergies
Allergy/AdvReac Type Severity Reaction Status Date / Time
No Known Allergies Allergy Verified 08/02/24 08:42
Home Medications
�Medication �Instructions �Recorded �Confirmed �Last Taken �Type
bupropion HCl 75 mg tablet 150 mg PO BID 07/21/24 07/21/24 Unknown History
mirtazapine 45 mg tablet 45 mg PO HS 07/21/24 07/21/24 Unknown History
peppermint oil 2 cap PO 8XD 07/21/24 07/21/24 Unknown History
sertraline 100 mg tablet 250 mg PO DAILY 07/21/24 07/21/24 Unknown History
acetaminophen 325 mg tablet 650 mg (2 x 325 mg) PO Q6 PRN Pain 07/23/24 Unknown Rx
5 days #20 tabs
Review of Systems
-
Respiratory: Other (Cough, shortness of breath, minimal expectoration with trace amount of blood in it. No pleuritic discomfort.)
Hematologic/Lymphatic: Other (All 14 systems reviewed and negative except as stated above in the history of present illness.)
Vitals / Labs / Diagnostic Testing
Vital Signs
Temp Pulse Resp BP Pulse Ox
98.3 F 142 31 156/83 96
02/25/25 16:43 02/25/25 17:15 02/25/25 17:15 02/25/25 16:43 02/25/25 17:27
Lab Data
02/25/25 16:50
02/25/25 16:50
Laboratory Results
02/25/25 02/25/25
17:09 17:36
PT 16.2 H
INR 1.24
APTT 27.6
pH 7.45
pCO2 32 L
pO2 80 L
HCO3 22.2
O2 Delivery Level
Diagnostic Testing:
Physical Exam
-
HEENT: Normocephalic
Cardiovascular: S1/S2 (Tachycardic.)
Respiratory: Rhonchi (Bilateral diffuse rhonchi.) and Accessory Resp Muscle Use
GI: Soft and Non Distended
Neurology: Awake and Alert
Skin: Warm
General: Respiratory Distress (Patient was in respiratory distress on my initial evaluation. After starting on high flow nasal cannula and nonrebreather, patient's work of breathing improved and he appeared more comfortable however with little
pulmonary reserve with easy desaturation with little activity.)
Assessment
-
#1. Acute severe hypoxic respiratory failure.
- Differential diagnosis includes multifocal pneumonia, ARDS, Vaping related lung injury, Silica related acute chemical pneumotis, AIP, DAH, Acute NSIP related to Connective tissue disorders etc. cardiogenic pulmonary edema also in differential
diagnosis however appears to be less likely. No pedal edema, known known history of cardiac disease, BNP is elevated however.
- Placed on High flow O2 along with non-rebreather, saturating in low 90's. Desaturates with little activity
- Check Blood cultures, sputum cultures, Influenza-19 and COVID screen. Legionella and Pneumococcal Ag. Check HIV, HBV and HCV screen
- Check CRP, YAYA, ANCA, RA factor, serial ABG
- Strict NPO. Low threshold to intubate. Will not tolerate awake Bronchoscopy
- If progresses to require intubation, will perform Bronchoscopy with serial Aliquot as well as BAL
- Initiate Vancomycin, Cefepime and Azithomycin along with Dexamethasone 20 mg IV (DEX-ARDS)
- If DAH rules in, will switch to Solumedrol 1 gm daily
- ECHO to evaluate LV and RV function
- Reviewed with patient regarding high likelihood of requiring Intubation and mechanical ventilation. We also discussed the potential need for PLEX therapy, ECMO and need for transfer to higher level of care. Patient expressed understanding and
agreed to above treatments as needed.
#2. Hemoptysis, trace
- Reported trace hemoptysis. No further episodes since in emergency room.
- Hemoptysis could be related to acute lung injury versus underlying diffuse alveolar hemorrhage.
- Patient will not tolerate awake bronchoscopy. If patient ends up getting intubated, we will proceed with a bronchoscopy along with BAL and serial aliquots to evaluate for diffuse alveolar hemorrhage
- Await infectious workup
- Continue broad-spectrum antibiotics, dexamethasone including coverage for atypical organisms.
#3. H/o Psoriatic Arthritis
- Not on any treatment per patient
- Connective tissue disease related NSIP in differential diagnosis. Check rheumatoid factor, YAYA, ANCA as well as CRP
Other medical diagnoses:
- H/o Vaping and Marijuana use
- Depression/Anxiety
- PTSD
- Prior h/o alcohol use disorder.
DVT prophylaxis. Hold off anticoagulants in view of hemoptysis. Will use SCDs
Critical Care time 85 mins -- The patient is admitted for acute critical illness for the treatment of vital organ failure and/or prevention of further life-threatening conditions. Total care includes time spent in review of history, physical exam,
medications, hemodynamic/ventilator parameters, laboratory data, imaging and discussion with house staff, pharmacy, respiratory therapy, brake tester, and nursing.
--- NOTE | 2025-02-25 17:49 | HPS.HSE ---
Family Physician
-
Family Physician: INTERVIEWE UNKNOWN - PT NOT
Chief Complaint
-
coughing up blood
History of Present Illness
34-year-old male past medical history of psoriasis, vaping, PTSD, insomnia, former alcohol use disorder, chronic bilateral ear/sinus pressure, chronic generalized pain, marijuana use presenting with shortness of breath progressively worsening over
the past few weeks associated with cough. He started coughing up blood yesterday.
He denies fevers or chills.
He works in [employer] and is exposed to silica and did develop some occasional cough and was previously wearing a mask until 2 weeks ago when he got a promotion.
Denies any pets or birds in the house.
He vapes 4 hits at night. Denies smoking. He uses marijuana sometimes. He used alcohol in the past.
His grandmother had rheumatoid arthritis.
Medical History
Past Medical History
Past Medical History: Reports Other (psoriasis, vaping, PTSD, insomnia, former alcohol use disorder, chronic bilateral ear/sinus pressure, chronic generalized pain, marijuana use)
Past Surgical History: Reports None
Social History
Tobacco: Vaping
Alcohol: Former
Drug: Marijuana
Family History
Family History: Not pertinent
Allergies / Home Medications
Allergies reflects when Allergies were last updated in [facility].
Home Medications with original date entered in [facility]
Allergy/Medication List:
Allergies
Allergy/AdvReac Type Severity Reaction Status Date / Time
No Known Allergies Allergy Verified 08/02/24 08:42
Home Medications
bupropion HCl 75 mg tablet 150 mg PO BID 07/21/24
mirtazapine 45 mg tablet 45 mg PO HS 07/21/24
peppermint oil 2 cap PO 8XD 07/21/24
sertraline 100 mg tablet 250 mg PO DAILY 07/21/24
acetaminophen 325 mg tablet 650 mg (2 x 325 mg) PO Q6 PRN Pain 5 days #20 tabs 02/27/25
Review of Systems
-
History Source: Patient
A 12 point ROS was completed and negative except as noted: Yes
Constitutional: Reports No Symptoms
EENT: Reports No Symptoms
Respiratory: Reports See HPI
Cardiac: Reports No Symptoms
Abdomen/GI: Reports No Symptoms
: Reports No Symptoms
Musculoskeletal: Reports No Symptoms
Skin: Reports No Symptoms
Neurological: Reports No Symptoms
Endocrine: Reports No Symptoms
Hematologic/Lymphatic: Reports No Symptoms
Psych: Reports No Symptoms
Physical Exam
Vital Signs
Vital Signs
Temp Pulse Resp BP Pulse Ox
98.3 F 142 31 156/83 96
02/25/25 16:43 02/25/25 17:15 02/25/25 17:15 02/25/25 16:43 02/25/25 17:27
Physical Exam
General: Well Developed, Well Nourished and No Apparent Distress
HEENT: NormoCephalic, Moist mucous membranes and Atraumatic
Respiratory: Clear
Cardiac: S1/S2 and Regular Rhythm; No Murmur or Rub
GI: Soft, Non Tender, Non Distended and Normal Bowel Sounds; No Organomegaly
Rectal: Deferred by Provider
Musculoskeletal: No Clubbing, No Cyanosis and No Edema
Skin: No Rash
Neuro: Nonfocal/grossly intact
Laboratory Results
-
02/25/25 16:50
02/25/25 16:50
Laboratory Results
PT 16.2 Sec (11.4-14.6) H 02/25/25 17:09
INR 1.24 02/25/25 17:09
APTT 27.6 Sec (23.4-35.0) 02/25/25 17:09
pH 7.45 (7.35-7.45) 02/25/25 17:36
pCO2 32 mmHg (35-48) L 02/25/25 17:36
pO2 80 mmHg (83-108) L 02/25/25 17:36
HCO3 22.2 mmol/L (21-28) 02/25/25 17:36
Total Bilirubin 0.7 mg/dl (0.2-1.3) 02/25/25 16:50
AST 63 U/L (17-59) H 02/25/25 16:50
ALT 38 U/L (0-50) 02/25/25 16:50
Alkaline Phosphatase 148 U/L (38-126) H 02/25/25 16:50
Data Reviewed
-
Lab Data: Labs Reviewed by me
Old Records: Reviewed
Impression/Plan
-
IMPRESSION:
PLAN:
# Acute hypoxemic respiratory failure/hemoptysis concerning for vaping associated lung injury versus silicosis versus diffuse alveolar hemorrhage versus viral/bacterial pneumonia
-Cardiac BNP 1900
- CT PE shows mild bilateral hilar/mediastinal adenopathy, severe extensive diffuse bilateral patchy/confluent airspace opacity likely severe pneumonia
-COVID and flu pending
- Empiric vancomycin/cefepime/azithromycin
-Start dexamethasone 20 mg IV
- High flow started with some improvement
- ABG pending
-Will probably need to intubate if not improving and may benefit from bronchoscopy afterwards
-Hold off IV fluids
-Check HIV, HBV, HCV, Legionella, strep antigen
- Check CRP, YAYA, ANCA, RA
-Check echo
-Urinalysis pending
- Pulmonary consulted
History of vaping
- UDS pending
Marijuana user
Psoriasis
- Not on medication
PTSD
Insomnia
Former alcohol use disorder
Chronic bilateral ear/sinus pressure
Chronic generalized pain
Full code
DVT prophylaxis�heparin
N.p.o.
[2025-02-25 17:55] LABS: Urine Character Clear (Clear)
--- NOTE | 2025-02-25 17:57 | W.PN.UPDATE ---
Addendum entered and electronically signed by Conchita Macias MD 02/25/25 19:10:
Patient again reevaluated once in the critical care unit.
Arterial line placed, stat ABG sent, pO2 reviewed, 88 on high flow nasal cannula as well as nonrebreather
Work of breathing appears to have improved since initial evaluation in the emergency room. Respiratory rate down into mid to high 20s. Heart rate continues to be in 120s to low 130s. Patient appears more comfortable and reports improving dyspnea
Follow-up stat chest x-ray
Initiate diuresis, Lasix 40 mg IV stat. Await YAYA, ANCA, hypersensitive pneumonitis panel, rheumatoid factor, anti-GBM and anti-smooth muscle antibodies.
No further hemoptysis noted. Legionella, streptococcal pneumococcal antigen negative. Influenza and COVID screen negative. Bedside [id number] ultrasound performed by myself, left ventricle systolic function appears normal. Formal
echocardiogram will be pursued.
Again discussed with patient regarding potential need for intubation, central line placement, PLEX therapy, ECMO support and transfer to [facility]. Patient is in agreement to proceed with these interventions if needed.
Additional 65 minutes of critical care time spent
Original Note:
Update Note
Progress Note Update
Patient presented to ED with Acute severe hypoxic respiratory failure. Evaluate in the Emergency room.
- Critically ill male patient with high risk of further deterioration. Patient was profoundly hypoxic and mottled on arrival. Responded well to supplemental O2 with high flow and non-rebreather.
- Differential diagnosis includes multifocal pneumonia, ARDS, Vaping related lung injury, Silica related acute chemical pneumotis, AIP, DAH, Acute NSIP related to Connective tissue disorders etc.
- Placed on High flow O2 along with non-rebreather, saturating in low 90's. Desaturates with little activity
- Check Blood cultures, sputum cultures, Influenza-19 and COVID screen. Legionella and Pneumococcal Ag. Check HIV, HBV and HCV screen
- Check CRP, YAYA, ANCA, RA factor, serial ABG, lactate.
- Strict NPO. Low threshold to intubate. Will not tolerate awake Bronchoscopy
- If progresses to require intubation, will perform Bronchoscopy with serial Aliquot as well as BAL
- Initiate Vancomycin, Cefepime and Azithomycin along with Dexamethasone 20 mg IV (DEX-ARDS)
- If COUNT INCLUDES THE [facility] rules in, will switch to Solumedrol 1 gm daily
- ECHO to evaluate LV and RV function
- Reviewed with patient regarding high likelihood of requiring Intubation and mechanical ventilation. We also discussed the potential need for PLEX therapy, ECMO and need for transfer to higher level of care. Pateint expressed understanding and
agreed to above treatments as needed.
Patient's mother' contact: [phone]. Bianca Angel.
[2025-02-25 18:03] LABS: Urine Red Blood Cell 0-2 /HPF (0-2); Urine White Cell 0-2 /HPF (0-5)
[2025-02-25 18:04] LABS: COVID-19 Antigen Negative (Negative)
[2025-02-25] MEDS: DECADRON 20 MG IV (18:17)
[2025-02-25 18:24] LABS: Glucose - Point of Care 156 mg/dl (70-99)
[2025-02-25 18:49] LABS: Magnesium 1.9 mg/dl (1.6-2.3)
[2025-02-25 18:59] LABS: B.E. -1.2 mmol/L; HCO3 22.6 mmol/L (21-28); O2 Saturation % 96.3 % (94-98); PCO2 34 mmHg (35-48); PO2 88 mmHg (83-108)
[2025-02-25] MEDS: ZITHROMAX INFUSION 250 IV (19:03)
--- NOTE | 2025-02-25 19:03 | W.PN.UPDATE ---
Update Note
Progress Note Update
Consented patient for blood transfusion if needed, verbalized understanding of risk/benefits, consent signed, type and screen ordered.
--- NOTE | 2025-02-25 19:04 | W.PN.SEPSIS ---
Sepsis
Vital Signs
Temp Pulse Resp BP Pulse Ox
99.3 F 136 40 132/85 94
02/25/25 17:53 02/25/25 17:53 02/25/25 17:53 02/25/25 17:59 02/25/25 17:53
Physical Exam
Physical Exam:
A focused exam was performed after fluid resuscitation.
Capillary Refill
Bilateral Upper Extremity:
Ruben Time: Less than 3 sec
Bilateral Lower Extremity:
Ruben Time: Less than 3 sec
Pulse Evaluation
Bilateral Radial:
Pulse Evaluation: Present
Bilateral Dorsalis Pedis:
Pulse Evaluation: Present
--- NOTE | 2025-02-25 19:04 | PHA.VAN.IN ---
Assessment
- Assessment
Renal Function: Appears similar to baseline
Concomitant Antimicrobials: azithromycin, cefepime
AUC Dosing Plan
- Dosing Variables
Dosing Weight (kg): 113.5
Dosing CrCl (ml/min): 125
Vd coefficient (L/kg): 0.7
- Empiric Dosing
Initial / Loading Dose: vanc 2000mg
Maintenance Regimen: vanc 1250mg Q8h
Estimated AUC (mcg*h/mL): 472
Estimated Peak (mcg*h/mL): 27.2
Estimated Trough (mcg/ml): 13.5
Estimated Half Life (H): 6.4
- Monitoring
No levels ordered at this time: consider levels at steady state
MRSA Screen: Ordered per protocol
Pharmacokinetics Vancomycin I
- -
Patient Age: 34
Patient Sex: Female
Vancomycin Day #: 1
Indication: Pulmonary/Respiratory
Requesting Provider: Dr. Forrest
Pertinent Antimicrobial Allergies:
no pertinent antimicrobial allergies
Height / Weight:
Height 6 ft 3 in
Actual Weight 113.5 kg
- Vital Signs / Lab Results
Temp Pulse Resp BP Pulse Ox
99.3 F 136 40 132/85 94
02/25/25 17:53 02/25/25 17:53 02/25/25 17:53 02/25/25 17:59 02/25/25 17:53
Lab Results - Hematology
02/25/25
16:50
WBC 33.7 H
Lab Results - Chemistry
02/25/25
16:50
BUN 26 H
Creatinine 0.7
Estimated Creat Clear > 125
Albumin 3.8
02/25/25
17:46
Lactic Acid 1.5
Lab Results - Urine
02/25/25
17:46
Urine Nitrite (Reflex) Negative
Leukocyte Esterase Rfl Negative
Urine WBC (Reflex) 0-2
Ur Squamous Epith Cells 6-10
Urine Bacteria (Reflex) Few A
Microbiology Results
02/25/25 17:35 Influenza Types A & B (DIAMOND) - Final
Nasal Swab Negative for Influenza A & B, NAAT
Negative results must be combined with clinical observations
and patient history.
Nucleic Acid Amplification test (NAAT)performed on the
[employer] platform.
--- NOTE | 2025-02-25 19:05 | OR.RPT ---
Operative Report
Operative Report
Right Radial Arterial catheter placement
Consent: Informed verbal consent was obtained from patient
Indication: Need for frequent ABG draws. Severe hypoxic respiratory failure
Bedside ultrasound was used to confirm patency of right radial artery. Under sterile condition area was subsequently cleaned and a drape was placed. Under direct ultrasound visualization,, radial artery was cannulated. Once blood was noted in the
chamber guidewire was advanced. Arterial catheter was subsequently advanced over the guidewire, and then guidewire was removed. Pressure tubing was subsequently attached to the catheter and arterial waveform was noted on the monitor. Subsequently
a dressing was placed.
Complications: None
Time spent: 20 min
Date of service: 02/25/2025
[2025-02-25] MEDS: SUBLIMAZE 50 MCG IV ×2 (19:26→19:28)
[2025-02-25 19:29] LABS: C-Reactive Protein > 270.00 mg/L (0.0-10.00)
[2025-02-25] MEDS: DIPRIVAN 100 IV ×3 (19:32→22:55)
[2025-02-25] MEDS: SUBLIMAZE 100 IV ×3 (19:37→22:54)
[2025-02-25] MEDS: VERSED 5 MG IV ×3 (19:37→21:36)
[2025-02-25] MEDS: SUBLIMAZE 100 MCG IV (19:38)
[2025-02-25] MEDS: NORCURON 10 MG IV (19:41)
--- NOTE | 2025-02-25 19:43 | OR.RPT ---
Operative Report
Operative Report
Rapid sequence intubation
Indication. Hypoxic respiratory failure, respiratory distress. Patient saturating around 91% on HFNC and nonrebreather at 100% FiO2 with tachypnea, tachycardia and started complaining of difficulty breathing and feeling tired.
Consent: Obtained form the patient.
Pre-medications: Fentanyl 50 mcg IV x 1
Patient was placed in Supine position. Nonrebreather and HFNC used to preoxygenate. Subsequently [id number] ventilation was applied, and HFNC was left inplace. 30 mg of Etomidate was given as an induction agent followed by 120 mg of
Succinylcholine as paralytic. O2 saturation prior to intubating was 84% despite HFNC, BVM. GlideScope was used, blade size #3, grade 1 view of vocal cords was obtained and ET tube, 8.0, was advanced under direct visualization without any difficulty.
Color change was confirmed and patient was bagged with BVM, with PEEP valve. Saturation of 74% was recorded. Bagging with BVM with PEEP valve was continued until SpO2 84% was achieved, then connected to Ventilator with high PEEP setting. Tube was
secured at 24 cm at the teeth. Patient tolerated the procedure well. No hemodynamic instability was noted.
Time spent: 25 min
Complications: None
Date of Service: 02/25/2025
--- NOTE | 2025-02-25 19:53 | PTCARENOTE ---
Pt received from ED to ICU bed [id number] at 1810. Pt on 100% HFNC with NRB. Tachypneic and dyspneic. SpO2 92-96% at rest. Noted as low as 88% with movement or coughing. Sinus tachycardic 130s. Dr Macias placed A-line. ABG sent. Pt reported
worsening SOB and chest pain with deep breaths. Pt intubated by Dr Macias. Birgit Lange, updated.
--- NOTE | 2025-02-25 20:03 | W.PN.UPDATE ---
Update Note
Progress Note Update
Addendum:
Patient reevaluated again around 715 pm. Patient more diaphoretic. Increased work of breathing. Patient reported feeling more short of breath and feeling tired. We discussed regarding intubation and patient agreed to proceed. Patient was
emergently intubated with ET tube 8.0.
Postintubation, will continue sedation with propofol, fentanyl. In view of severe hypoxia and vent asynchrony, vecuronium push ordered followed by cisatracurium infusion
Will use lung protective ventilation, 6 mL/kg body weight, 400 tidal volume, PEEP of 16, FiO2 100%, respiratory rate of 18. Peak pressure noted to be 34, plateau pressure noted to be 29. Severely reduced lung compliance around 30.
Will follow-up ABG in 45 minutes. If PF ratio less than 150, will proceed to proning.
Postintubation, endotracheal aspirate noted to be fairly clear nonbloody. Considering patient's tenuous respiratory status, we will hold off on bronchoscopy for now. No active hemoptysis noted. Will send tracheal cultures.
Called patient's mother Bianca Angel and updated her about the events so far.
Additional critical care time spent 60 minutes
[2025-02-25] MEDS: NIMBEX 200 ML IV (20:31)
[2025-02-25] MEDS: NIMBEX 200 MG IV (20:31)
[2025-02-25] MEDS: LASIX 40 MG IV (20:39)
[2025-02-25] MEDS: REFRESH CELLUVISC GEL 1 DROPS BOTH EYES (20:40)
[2025-02-25 20:54] LABS: B.E. -7.7 mmol/L; HCO3 25.6 mmol/L (21-28); O2 Saturation % 89.4 % (94-98); PO2 75 mmHg (83-108)
[2025-02-25] MEDS: OFIRMEV 100 IV (20:58)
[2025-02-25 21:08] LABS: PCO2 99 mmHg (35-48)
[2025-02-25 21:12] LABS: Triglycerides 132 mg/dl (10-149)
[2025-02-25] MEDS: NIMBEX 17 MG IV ×2 (21:14→22:14)
[2025-02-25 21:16] LABS: Blood Urea Nitrogen 28 mg/dl (9-20); Calcium 8.5 mg/dl (8.4-10.2); Carbon Dioxide 26 mmol/L (22-30); Chloride 100 mmol/L (98-107); Estimated Creatinine Clearance > 125 ml/min; Glucose 205 mg/dl (70-99); Magnesium 2.3 mg/dl (1.6-2.3); Potassium 5.9 mmol/L (3.5-5.1); Sodium 135 mmol/L (135-145); eGFR > 60.00
[2025-02-25] MEDS: SODIUM BICARBONATE 50 MEQ IV ×6 (21:26→22:26)
[2025-02-25 21:36] LABS: Troponin I 0.414 ng/ml
[2025-02-25 21:58] LABS: B.E. -3.7 mmol/L; HCO3 28.5 mmol/L (21-28); O2 Saturation % 89.9 % (94-98); PO2 72 mmHg (83-108)
[2025-02-25] MEDS: PITRESSIN 100 IV ×2 (21:59→22:54)
[2025-02-25 22:02] LABS: PCO2 94 mmHg (35-48)
[2025-02-25 22:03] LABS: Hepatitis C Antibody Negative (Negative)
[2025-02-25] MEDS: SODIUM BICARBONATE 1150 MEQ IV (22:34)
--- NOTE | 2025-02-25 22:54 | OR.RPT ---
Operative Report
Operative Report
Left IJ Central Line placement
Indication: Shock, need central access for multiple pressors
Consent: Patient consented for central line as needed prior to getting intubated and sedated.
Time-out was performed and patient was placed in Trendelenburg position. Ultrasound was used to assess patency of left IJ vein. Under sterile conditions area was cleaned with chlorhexidine and then a full body drape was placed. Under real-time
ultrasound guidance, long axis view, the needle was inserted and vein was punctured, once blood was aspirated, syringe was removed and guidewire was advanced which did not meet any resistance. Subsequently needle was withdrawn and guidewire was
left in place. Ultrasound was used again to confirm presence of guidewire inside the vein lumen. A small jamin was placed at the skin and a dilator was advanced to about 50% of its length. Dilator was removed and central venous catheter was
advanced over guidewire and subsequently guidewire was removed. All 3 ports were capped and they were easy to flush and were withdrawing blood without any resistance. Central line was sutured to the skin and dressing was applied.
Ultrasound of the lungs was performed and good lung sliding was obtained. Patient stayed hemodynamically stable through the procedure.
Complications: None
Time spent: 25 min
Date of Service: 02/25/2025
[2025-02-25] MEDS: LEVOPHED 250 IV (22:55)
--- NOTE | 2025-02-25 22:55 | W.PN.UPDATE ---
Update Note
Progress Note Update
Addendum:
Patient persistently hypoxic and hypercapnic. 7. on volume assist-control 450/20/100%/16.
Patient given 2 bicarb pushes, bicarb infusion ordered
Vent settings changed to 500/30/100%/16. Follow-up blood gas 7.
Continued difficulty oxygenating and ventilating with rising pCO2.
Contacted [facility] lung rescue program and requested transfer for ECMO. Patient accepted for ECMO. [facility] team will arrive shortly to cannulate and transport the patient.
With increasing sedation, patient starting to develop hypotension, initiated pressors Levophed and subsequently vasopressin was added. Left-sided IJ central line placed.
Updated patient's father and mother at bedside. They are in agreement with transfer for ECMO.
--- NOTE | 2025-02-25 23:00 | RESPNOTE ---
PT came up to the ICU maxed out on HFNC and still hypoxic with increased WOB/SOB and was also placed on a NRBM. PT was subsequently intubated and placed on the vent. PT was intubated with an 8.0 ETT and was initially secured at 25 cm at the lip.
ETT placement was verified with positive color changing end tidal and equal and present BBS. CXR revealed that the ETT was a little shallow and ETT was advanced 2 cm at this time and CXR was retaken. Repeat showed adequate ETT placement and ETT
was re-secured. After several ABG results and tweakin ventilator settings, we settled on A/C-30/500/+15/100%. PT was sedated and paralyzed and Bicarb was administered. O2 sat eventually came up to high 90's ABG results were better.
[2025-02-25 23:08] LABS: B.E. 3.8 mmol/L; HCO3 33.3 mmol/L (21-28); O2 Saturation % 96.3 % (94-98); PO2 87 mmHg (83-108)
[2025-02-25 23:09] LABS: PCO2 76 mmHg (35-48)
--- NOTE | 2025-02-25 23:22 | PTCARENOTE ---
Rec'd pt from previous shift, shortly after intubated/paralyzed/sedated by Dr Macias. [employer] Kiera also at bedside. Sat 85% initially. Labs sent and resulted, vent settings changed. Pt sedated with propofol/fentanyl, PRN doses as well as drip of
Nimbex. Due to extremely tenuous scenario, unable to obtain initial train of four, or train of four thereafter 2/2 profuse sweating. BIS monitor also unable to be properly applied. As per orders, Fent gtt at 300mcg/hr, prop at 50 mcg/kg/min. With
nimbex, pt sat 92%. Neurologically sedated/paralyzed. Temp 101, ofirmev given temp now 98.8. ST 118. MAP goal 65, titrating Levophed to clinical endpoints, Vaso added to regimen as well. 4 pushes of bicarb given followed by bicarb gtt. L IJ TLC
placed by Dr Macias, confirmed by XRAY. Hands mottled bilaterally. Vega/pale coloring of face. #8 ett at 27, confirmed via xray. Vent settings as it stands are 100%/RR30/tVol 500/PEEP16, PeakP 37. Sat 99%. NGT left nare, LIWS. Abdomen soft. Temp
sensing martel placed with 500ml initial output clear yellow urine, very little thereafter. Current K+ 6.6, awaiting orders. Family updated on plan of care. Report called to Wyatttaniranjan as well as [place] ICU nurse. Awaiting Cannulation team/transfer in
the near future. Will monitor closely.
[2025-02-25 23:27] LABS: Blood Urea Nitrogen 33 mg/dl (9-20); Calcium 7.1 mg/dl (8.4-10.2); Carbon Dioxide 31 mmol/L (22-30); Chloride 98 mmol/L (98-107); Estimated Creatinine Clearance > 125 ml/min; Glucose 264 mg/dl (70-99); Potassium 6.6 mmol/L (3.5-5.1); Sodium 133 mmol/L (135-145); eGFR > 60.00
[2025-02-25] MEDS: VANCOCIN 275 MG IV (23:41)
[2025-02-25] MEDS: STERILE WATER FOR INJECTION 10 ML IV (23:41)
[2025-02-25 23:51] LABS: Glucose - Point of Care 240 mg/dl (70-99)
[2025-02-25] MEDS: NOVOLIN R 10 UNITS IV (23:51)
[2025-02-25] MEDS: DEXTROSE 50% SYRINGE 25 GRAMS IV (23:52)
[2025-02-25] MEDS: CALCIUM GLUCONATE 130 MG IV (23:55)
[2025-02-26] VITALS: BP 116/73
[2025-02-26] MEDS: DIPRIVAN 100 IV (00:33)
[2025-02-26] MEDS: VERSED 5 MG IV ×2 (00:42→01:35)
[2025-02-26] MEDS: SUBLIMAZE 100 MCG IV ×2 (00:42→01:34)
[2025-02-26] MEDS: NIMBEX 17 MG IV (00:43)
[2025-02-26] MEDS: ADRENALIN 250 IV (00:52)
[2025-02-26] MEDS: LEVOPHED 250 IV (01:42)
[2025-02-26] MEDS: SUBLIMAZE 100 IV (01:42)
--- NOTE | 2025-02-26 02:12 | PTCARENOTE ---
Eduardo doc at bedside to cannulate patient via RIJ and R Femoral. Transport team here and getting patient ready to transfer.
--- NOTE | 2025-02-26 03:29 | W.PN.UPDATE ---
Update Note
Progress Note Update
02/25/2025
191- Dr. Macias, wood molder at bedside, worsening tachypnea, hypoxemia, and patient decompensates with any talking or movement. Maxed on high flow FIO2 and non rebreather. Decision was made to intubate the patient and he was intubated by
Gilberto. Sedation added propofol and fentanyl gtts. Initially patient had ventilator dyssynchrony and continued hypoxemia, increased peep to 15 and changed sedation to deep sedation protocols with addition of paralytic, 1x bolus vecuronium given.
Nimbex gtt and boluses were added to aide with ventilator compliance. Patient pale, haegn, profusely diaphoretic.
2100- ABG acute hypercapnic respiratory failure, acute worsening hypercapnia despite intubation. AB.02, CO2 99, O2 75, HCO3 25. Increased ventilator setting rate to 30, TV to 450. Shortly after TV was then increased to 500. Continued
difficulty oxygenating and ventilating with rising pCO2. Additional boluses of bicarb x2 amps ordered and given. Patient noted to also having worsening hypotension and increased needs for levophed gtt. Discussed with Dr. Macias, initially plan was
to prone patient to help with oxygenation however with worsening hypercapnia and acidosis the plan was changed to ECMO. Patient's mother Bianca [phone] called and updated, all questions answered. Also called patient's jeff Alba at
[phone], updated and all questions answered.
2200- Central access left IJ TLC obtained by Dr. Macias. Bicarb gtt ordered in addition to amps of bicarb IV push. Dr. Macias discussed patient case with the [facility] Lung Rescue Team and patient was accepted by Dr. Jbo Raines.
Patient's mother Bianca arrived at the hospital, updated throughout the night and answered all questions. Patient's family jeff Alba and father David arrived, all were given updates.
02/26/2025
0100- [facility] Lung Rescue Team arrived. Patient cannulated for ECMO. Dr. Jbo Raines at bedside for cannulation procedure. Added epi gtt for additional support during cannulation. Patient's family updated by Dr. Raines
and myself post procedure.
Point of contact for family:
Patient's mother Bianca [phone]
Jeff Alba [phone]
Father- David [phone]
--- NOTE | 2025-02-26 09:58 | CM ---
Patient was discharged to [facility] for specialized acute care services @ 01:00 on this date 02/26/25.
== END 2025-02-26 02:30 | disposition other institution (70) | DRG 208 ==
LOC: ICU 18:21
PROVIDERS: Nurse Practitioner Family; ADMITTING PHYSICIAN Hospitalist; CONSULT PHYSICIAN Internal Medicine; EMERGENCY PHYSICIAN Emergency Medicine
PROC: 5A1935Z Respiratory Ventilation, Less than 24 Consecutive Hours (ICD-10-PCS; 2025-02-25)
PROC: B544ZZA Ultrasonography of Left Jugular Veins, Guidance (ICD-10-PCS; 2025-02-25)
PROC: 05HN33Z Insertion of Infusion Device into Left Internal Jugular Vein, Percutaneous Approach (ICD-10-PCS; 2025-02-25)
PROC: 0BH17EZ Insertion of Endotracheal Airway into Trachea, Via Natural or Artificial Opening (ICD-10-PCS; 2025-02-25)
DX: J96.02 Acute respiratory failure with hypercapnia (principal); R57.9 Shock, unspecified; J96.01 Acute respiratory failure with hypoxia; F17.290 Nicotine dependence, other tobacco product, uncomplicated; F32.A Depression, unspecified; F41.9 Anxiety disorder, unspecified; F43.10 Post-traumatic stress disorder, unspecified; G47.00 Insomnia, unspecified; G89.29 Other chronic pain; L40.50 Arthropathic psoriasis, unspecified; L40.9 Psoriasis, unspecified; Z79.899 Other long term (current) drug therapy; Z82.61 Family history of arthritis; F10.10 Alcohol abuse, uncomplicated; Z11.52 Encounter for screening for COVID-19
CPT/HCPCS: 71045; 71275; 80048; 80053; 80306; 80307; 81003; 81015; 82805; 82962; 83516; 83605; 83735; 83880; 84100; 84478; 84484; 85025; 85610; 85730; 86015; 86038; 86140; 86331; 86430; 86606; 86803; 86850; 86900; 86901; 86920; 87040; 87070; 87205; 87389; 87449; 87502; 87517; 87641; 87811; 87899; 94002; 94003; 96365; 96375; 99291; Q9967